=== PATIENT | female | born 1980 | race Caucasian/White ===

== ENCOUNTER 2018-08-28 05:31 | Inpatient (IN) | payer BC ==
[~2018-08-28] VITALS: Ht 175.3 cm; Wt 109.0 kg
[~2018-08-28 05:31] MED LIST: ACET325T14 PO; DOCO200C3 PO; IBUP-1222 PO; LEVO150T5 PO; OXYC-302 PO
[2018-08-28] MEDS ORDERED: LACTATED RINGERS 1,000 ML IV SCH ×2 (05:36→05:45)
[2018-08-28] MEDS ORDERED: OXYTOCIN 30U/ 0.9% NaCL 500ML 500 ML IV SCH (05:36)
[2018-08-28 06:00] VITALS: BP 112/63
[2018-08-28] MEDS ORDERED: METOCLOPRAMIDE 5 MG/ML, 2ML IV ONE (06:00)
[2018-08-28] MEDS ORDERED: LACTATED RINGERS 1,000 ML IVBOLUS ONE (06:00)
[2018-08-28] MEDS ORDERED: SODIUM CITRATE/CITRIC ACID 30 ML UDC PO ONE (06:00)
[2018-08-28 06:15] LABS: MEAN CORPUSCULAR HEMOGLOBIN 26.2 pg (27.0-34.8); MEAN CORPUSCULAR HGB CONC 33.2 g/dL (32.4-35.8); MEAN CORPUSCULAR VOLUME 79.2 fL (80-100); MEAN PLATELET VOLUME 8.6 fL (7.4-10.4); PLATELET COUNT 200 x10^3/uL (130-400); RED BLOOD COUNT 4.49 x10^6/uL (3.82-5.3); RED CELL DISTRIBUTION WIDTH 29.2 % (9.6-15.2)
[2018-08-28 06:28] LABS: BASOPHILS # (AUTO) 0.01 x10^3/uL (0-0.1); BASOPHILS % (AUTO) 0 % (0-1); EOSINOPHILS % (AUTO) 2 % (1-7); LYMPHOCYTES # (AUTO) 1.28 x10^3/uL (1-3.4); LYMPHOCYTES % (AUTO) 19 % (22-44); MD SCAN; MONOCYTES # (AUTO) 0.48 x10^3/uL (0.2-0.8); MONOCYTES % (AUTO) 7 % (2-9); NEUTROPHILS # (AUTO) 4.74 x10^3/uL (1.8-6.8); NEUTROPHILS % (AUTO) 72 % (42-75)
[2018-08-28] MEDS ORDERED: OXYTOCIN 30U/ 0.9% NaCL 500ML 500 ML ONE (07:18)
[2018-08-28] MEDS ORDERED: ONDANSETRON 2MG/ML, 2ML ONE (07:20)
[2018-08-28] MEDS ORDERED: FENTANYL PF 100 MCG/2ML ONE (07:20)
[2018-08-28] MEDS ORDERED: HYDROmorphone 2 MG/ML, 1ML ONE (07:20)
[2018-08-28] MEDS ORDERED: OXYTOCIN 10 UNITS/ML, 1ML ONE (07:20)
[2018-08-28] MEDS ORDERED: CEFAZOLIN 1,000 MG ONE (07:20)
[2018-08-28] MEDS ORDERED: SODIUM CHLORIDE 0.9% PF 10ML ONE ×2 (07:22)
[2018-08-28] MEDS ORDERED: EPHEDRINE 50 MG/ML, 1ML ONE ×2 (07:49)
[2018-08-28] MEDS ORDERED: ATROPINE 0.4 MG/ML, 1ML ONE (07:49)
[2018-08-28] MEDS: LACTATED RINGERS 1,000 ML IV SCH ×4 (09:04→19:04)
[2018-08-28] MEDS ORDERED: MEASLES,MUMPS&RUBELLA VACC/PF 0.5 ML SQ-VACC PRN (09:30)
[2018-08-28] MEDS ORDERED: MEPERIDINE/PF 100 MG/ML IVPush PRN (09:30)
[2018-08-28] MEDS ORDERED: MEPERIDINE/PF 50 MG/ML IVPush PRN (09:30)
[2018-08-28] MEDS ORDERED: MISOPROSTOL 200 MCG TABLET PR PRN (09:30)
[2018-08-28] MEDS ORDERED: OXYcodone/APAP 5/325MG TABLET PO PRN (09:30)
[2018-08-28] MEDS ORDERED: ONDANSETRON 2MG/ML, 2ML IV PRN (09:30)
[2018-08-28] MEDS ORDERED: CALCIUM CARBONATE 500 MG TAB.CHEW PO PRN (09:30)
[2018-08-28] MEDS ORDERED: SIMETHICONE 80 MG CHEW TAB PO PRN (09:30)
[2018-08-28] MEDS ORDERED: HYDROcodone/APAP 7.5-325MG/15ML UDC ONE (10:28)
[2018-08-28] MEDS ORDERED: HYDROcodone/APAP 7.5-325MG/15ML UDC PO ONE (10:30)
[2018-08-28] MEDS: OXYTOCIN 30U/ 0.9% NaCL 500ML 500 ML IV SCH ×2 (10:31→19:04)
[2018-08-28 11:20] VITALS: BP 90/51
[2018-08-28] MEDS: KETOROLAC 30 MG/1 ML IV SCH ×2 (14:40→20:16)
[2018-08-28 16:30] VITALS: BP 98/60
[2018-08-28 16:42] LABS: BASOPHILS # (AUTO) 0.02 x10^3/uL (0-0.1); BASOPHILS % (AUTO) 0 % (0-1); EOSINOPHILS # (AUTO) 0.15 x10^3/uL (0-0.4); EOSINOPHILS % (AUTO) 2 % (1-7); LYMPHOCYTES # (AUTO) 0.93 x10^3/uL (1-3.4); LYMPHOCYTES % (AUTO) 11 % (22-44); MD MORPH REVIEW ONLY; MEAN CORPUSCULAR HEMOGLOBIN 25.6 pg (27.0-34.8); MEAN CORPUSCULAR HGB CONC 32.2 g/dL (32.4-35.8); MEAN CORPUSCULAR VOLUME 79.4 fL (80-100); MEAN PLATELET VOLUME 8.2 fL (7.4-10.4); MONOCYTES # (AUTO) 0.46 x10^3/uL (0.2-0.8); MONOCYTES % (AUTO) 5 % (2-9); NEUTROPHILS # (AUTO) 7.22 x10^3/uL (1.8-6.8); NEUTROPHILS % (AUTO) 82 % (42-75); PLATELET COUNT 180 x10^3/uL (130-400); RED BLOOD COUNT 3.74 x10^6/uL (3.82-5.3); RED CELL DISTRIBUTION WIDTH 29.2 % (9.6-15.2)
[2018-08-28 16:43] LABS: ANISOCYTOSIS 1+
[2018-08-28 16:44] LABS: <PLATELET ESTIMATE> ADEQUATE; <PLT MORPHOLOGY> NORMAL PLT MORPH; HYPOCHROMIA 1+
[2018-08-28 21:40] VITALS: BP 103/66
[2018-08-29 00:50] VITALS: BP 102/66
[2018-08-29] MEDS: LACTATED RINGERS 1,000 ML IV SCH ×5 (01:04→17:04)
[2018-08-29] MEDS: KETOROLAC 30 MG/1 ML IV SCH ×4 (02:36→21:21)
[2018-08-29] MEDS: OXYTOCIN 30U/ 0.9% NaCL 500ML 500 ML IV SCH ×2 (05:04→15:04)
[2018-08-29] MEDS: OXYcodone/APAP 5/325MG TABLET PO PRN (05:32)
[2018-08-29] MEDS: PRENATAL VIT/IRON/FA 1 EACH TABLET PO SCH (09:00)
[2018-08-29 09:10] VITALS: BP 100/65
[2018-08-29] MEDS: DOCUSATE 100 MG CAPSULE PO PRN ×2 (09:10→21:21)
[2018-08-29 19:45] VITALS: BP 113/72
[2018-08-30] MEDS: OXYTOCIN 30U/ 0.9% NaCL 500ML 500 ML IV SCH (01:04)
[2018-08-30] MEDS: LACTATED RINGERS 1,000 ML IV SCH ×2 (01:04)
[2018-08-30] MEDS: KETOROLAC 30 MG/1 ML IV SCH ×2 (03:21→09:04)
[2018-08-30 07:39] VITALS: BP 92/55
[2018-08-30] MEDS: PRENATAL VIT/IRON/FA 1 EACH TABLET PO SCH (09:00)
[2018-08-30] MEDS ORDERED: KETOROLAC 30 MG/1 ML ONE (09:01)
[2018-08-30] MEDS: DOCUSATE 100 MG CAPSULE PO PRN (09:04)
[2018-08-30] MEDS ORDERED: IBUPROFEN 600 MG TABLET PO PRN (09:30)
[2018-08-30] MEDS: OXYcodone/APAP 5/325MG TABLET PO PRN (15:21)
== END 2018-08-30 18:00 | disposition home or self-care (01) | DRG 785 ==
LOC: LDIP 05:31 → 2NW 10:30
PROVIDERS: ADMIT Obstetrics & Gynecology; ATTEND Obstetrics & Gynecology
PROC: 10D00Z1 Extraction of Products of Conception, Low, Open Approach (ICD-10-PCS; principal; 2018-08-28)
PROC: 0UB70ZZ Excision of Bilateral Fallopian Tubes, Open Approach (ICD-10-PCS; 2018-08-28)
PROC: 0UQKXZZ Repair Hymen, External Approach (ICD-10-PCS; 2018-08-28)
DX: O34.211 Maternal care for low transverse scar from previous cesarean delivery (principal); O69.81X0 Labor and delivery complicated by cord around neck, without compression, not applicable or unspecified; O99.284 Endocrine, nutritional and metabolic diseases complicating childbirth; E03.9 Hypothyroidism, unspecified; D50.9 Iron deficiency anemia, unspecified; O99.02 Anemia complicating childbirth; L91.0 Hypertrophic scar; O99.72 Diseases of the skin and subcutaneous tissue complicating childbirth; Z30.2 Encounter for sterilization; Z37.0 Single live birth; Z3A.39 39 weeks gestation of pregnancy; Z88.0 Allergy status to penicillin; Z88.2 Allergy status to sulfonamides; Z88.8 Allergy status to other drugs, medicaments and biological substances; Z91.018 Allergy to other foods
CPT/HCPCS: 36415; 85025; 86850; 86900; 86923; 88302; 88305; G0378; J0461; J0690; J1170; J1885; J2405; J3010; J2590; J2765; J7120